=== PATIENT | male | born 1950 | race Two or more races ===

== ENCOUNTER 2016-05-26 17:12 | Emergency (ER) | payer OTHER ==
[~2016-05-26] VITALS: Ht 172.7 cm; Wt 60.1 kg
[2016-05-26 17:30] VITALS: BP 97/70
== END 2016-05-26 19:35 | disposition left against medical advice (07) ==
LOC: ED 17:12
DX: Z53.21 Procedure and treatment not carried out due to patient leaving prior to being seen by health care provider (principal)

== ENCOUNTER 2016-05-28 14:38 | Emergency (ER) | payer OTHER ==
[~2016-05-28] VITALS: Ht 170.2 cm; Wt 61.2 kg
[2016-05-28 14:43] VITALS: BP 133/66
== END 2016-05-28 15:10 | disposition home or self-care (01) ==
LOC: ED 14:38
DX: S61.210D Laceration without foreign body of right index finger without damage to nail, subsequent encounter (principal); X58.XXXD Exposure to other specified factors, subsequent encounter; Y99.8 Other external cause status; Y92.89 Other specified places as the place of occurrence of the external cause